=== PATIENT | female | born 1945 | race Caucasian/White ===

== ENCOUNTER 2020-12-10 14:36 | Outpatient (CLI) | payer MEDICARE, OTHER, BC, SELFPAY ==
--- NOTE | 2020-12-10 14:44 | XR_ITS ---
WS: [id number] SCREENING DEXA SCAN [employer] CLINICAL INFORMATION: POST MENOPAUSAL COMPARISON: July 10, 2013 FINDINGS: The L1-L4 bone mineral density measures 1.276 g/cm2. This corresponds to a T score score of 0.8 and Z score of 2.0. Left femoral neck bone mineral density measures 0.887 g/cm2. This corresponds to a T score of -1.0 an d Z score of 0.3. Right femoral neck bone mineral density measures 0.922 g/cm2. This corresponds to a T score -0.7of an d Z score of 0.6. Mean femoral neck bone mineral density measures 0.904 g/cm2. This corresponds to a T score of -0.8 an d Z score of 0.5. XR/XR DEXA axial skeleton* [id number] IMPRESSION: Osteopenia left femoral neck. Normal bone mineralization right femoral neck and lumbar spine. Patient's FRAX calculated 10 year probability for major osteoporotic fracture i s 18.3 % and osteoporotic hip fracture is 5.4%.
== END 2020-12-10 14:37 | disposition home or self-care (01) ==
LOC: RADWPI 14:42
PROVIDERS: Visit Provider Family Medicine
DX: Z78.0 Asymptomatic menopausal state (principal); M85.862 Other specified disorders of bone density and structure, left lower leg
CPT/HCPCS: 77080

== ENCOUNTER 2021-10-13 14:07 | Outpatient (CLI) | payer MEDICARE, BC, SELFPAY ==
--- NOTE | 2021-10-13 14:19 | XR_ITS ---
WS: [id number] XR elbow LT min 3V* [id number] REASON FOR EXAM: ELBOW PAIN LEFT FINDINGS: Joint spaces of the elbow are intact and well preserved. There is a deformity of the radial head. This appears to represent an impacted fracture of unknown ch ronicity. No other bone abnormality. No soft tissue abnormality. XR/XR elbow LT min 3V* [id number] IMPRESSION: Impaction fracture of the radial head, unknown chronicity. Most likely subacute versus chronic.
== END 2021-10-13 14:08 | disposition home or self-care (01) ==
PROVIDERS: PCP Family Medicine; Visit Provider Family Medicine
DX: S52.122A Displaced fracture of head of left radius, initial encounter for closed fracture (principal); M25.522 Pain in left elbow; X58.XXXA Exposure to other specified factors, initial encounter
CPT/HCPCS: 73080

== ENCOUNTER → 2021-10-21 08:13 | Outpatient (BNVA) | payer MEDICARE, BC, SELFPAY | PROVIDERS: PCP Family Medicine; Referring Provider Family Medicine; Visit Provider Physician Assistant | DX: S59.902A Unspecified injury of left elbow, initial encounter (principal); X58.XXXA Exposure to other specified factors, initial encounter | CPT/HCPCS: 73080 ==

== ENCOUNTER → 2021-11-04 09:06 | Outpatient (BNVA) | payer MEDICARE, BC, SELFPAY | PROVIDERS: PCP Family Medicine; Visit Provider Physician Assistant | DX: S52.125D Nondisplaced fracture of head of left radius, subsequent encounter for closed fracture with routine healing (principal); X58.XXXD Exposure to other specified factors, subsequent encounter; M19.011 Primary osteoarthritis, right shoulder; M75.41 Impingement syndrome of right shoulder | CPT/HCPCS: 73030; 73080; 99213; 99999 ==

== ENCOUNTER 2022-03-08 12:41 | Outpatient (CLI) | payer MEDICARE, BC, SELFPAY ==
--- NOTE | 2022-03-08 13:04 | XRR_ITS ---
PROCEDURE INFORMATION: Exam: XR Left Knee Exam date and time: 03/08/2022 1:07 PM Age: 76 years old Clinical indication: Swelling or effusion of joint; Knee; Left; Patient HX: Swelling around patella, pain around 7 dull ache x 1 month; Additional info: Knee pain TECHNIQUE: Imaging protocol: Radiologic exam of the Left knee. Views: 1 or 2 views. COMPARISON: No relevant prior studies available. FINDINGS: Bones/joints: A joint effusion is present with fluid in the suprapatellar bursa. No fracture or other acute abnormality. No significant degenerative changes. Soft tissues: Normal. XR/XR knee LT 1-2V [id number] IMPRESSION: Small joint effusion. No acute bony abnormality.
== END 2022-03-08 12:42 | disposition home or self-care (01) ==
LOC: RAD 12:45
PROVIDERS: PCP Family Medicine; Visit Provider Family Medicine
DX: M25.562 Pain in left knee (principal); E03.9 Hypothyroidism, unspecified; R06.00 Dyspnea, unspecified
CPT/HCPCS: 73560; 80053; 83880; 84443; 85025; 85379

== ENCOUNTER 2022-03-16 09:30 | Outpatient (CLI) | payer MEDICARE, BC, SELFPAY ==
[2022-03-16] MEDS: iohexol 350 mg/mL 100 mL Btl IV (09:51)
--- NOTE | 2022-03-16 10:00 | CT_ITS ---
WS: [id number] CTA OF THE CHEST WITH PULMONARY EMBOLISM PROTOCOL TECHNIQUE: High-resolution contrast enhanced CTA of the chest with coronal and sagittal reformatted i mages with pulmonary embolism protocol. MIP images are also reviewed. CLINICAL INFORMATION: dyspnea and elevated d-dimer COMPARISON: None. DLP: 493.[address] scans at [facility] use at least one of these dose optimization techniques: automated e xposure control; mA and/or kV adjustment per patient size (includes targeted exams where dose is matc hed to clinical indication); or iterative reconstruction. FINDINGS: Cardiomegaly. Proximal main pulmonary arteries are normal. Normal segmental and subsegmental pulmonar y arteries. No evidence of pulmonary embolus. Moderate chronic edematous changes. No acute pulmonary infiltrates. Slight bibasilar atelectasis. Nor mal caliber thoracic aorta. No mediastinal or hilar lymphadenopathy. No axillary lymphadenopathy. Sli ghtly spiculated Fibrotic opacity RIGHT upper lobe at the lung apex. Subpleural opacity measures 1.2 x 1.0 CM. Adrenal glands are normal. Moderate esophageal hiatal hernia. CT/CT angio chest PE protcl [id number] IMPRESSION: 1. No evidence of pulmonary embolus. 2. Chronic emphysematous changes. No acute pulmonary infiltrates. Slight bibas ilar atelectasis. 3. Slightly spiculated Fibrotic opacity RIGHT upper lobe at the lung apex rubin uring 1.2 x 1.0 cm. Recommend 3-6 month follow-up chest CT to confirm stability .
== END 2022-03-16 09:31 | disposition home or self-care (01) ==
LOC: RAD 09:30
PROVIDERS: PCP Family Medicine; Visit Provider Family Medicine
DX: R06.00 Dyspnea, unspecified (principal); R79.89 Other specified abnormal findings of blood chemistry; J98.11 Atelectasis
CPT/HCPCS: 71275

== ENCOUNTER → 2022-04-01 15:48 | Outpatient (BNVA) | payer MEDICARE, BC, SELFPAY | PROVIDERS: PCP Family Medicine; Visit Provider Registered Nurse Neonatal Intensive Care | DX: Z20.822 Contact with and (suspected) exposure to COVID-19 (principal) | CPT/HCPCS: 87426 ==

== ENCOUNTER 2022-04-13 15:17 | Outpatient (CLI) | payer MEDICARE, BC, SELFPAY ==
--- NOTE | 2022-04-13 16:00 | CT_ITS ---
WS: [id number] CT CHEST TECHNIQUE: Noncontrast CT of the chest with coronal and sagittal reformatted images. CLINICAL INFORMATION: Follow-up on lung nodule COMPARISON: CT March 16, 2022 DLP: 645.[address] scans at [facility] use at least one of these dose optimization techniques: automated e xposure control; mA and/or kV adjustment per patient size (includes targeted exams where dose is matc hed to clinical indication); or iterative reconstruction. FINDINGS: Again seen is a slightly spiculated fibrotic opacity in RIGHT lung apex today measuring approximately 1.3 x 1.0 cm not significantly changed compared to previous. Recommend continued surveillance with 1 2 month follow-up. Small associated punctate focus of calcification. A few scattered calcified granulomas. Slight bibasilar atelectasis. Moderate thoracic kyphosis. Hyper trophic changes thoracic spine. Normal caliber thoracic aorta. Calcified mediastinal and AP window ly mph nodes. Calcified subcarinal lymph nodes. No axillary lymphadenopathy. Cardiomegaly. Adrenal glands are normal. Moderate esophageal hiatal hernia. CT/CT chest wo con [id number] IMPRESSION: 1. Stable fibrotic slightly spiculated opacity in RIGHT lung apex measuring 1. 3 x 1.0 cm not significantly changed. Recommend 12 month follow-up. 2. No other significant changes compared to previous. 3. Moderate esophageal hiatal hernia. 4. Cardiomegaly. 5. No mediastinal or hilar lymphadenopathy. 6. No other significant findings.
== END 2022-04-13 15:18 | disposition home or self-care (01) ==
LOC: RAD 15:18
PROVIDERS: PCP Family Medicine; Visit Provider Family Medicine
DX: R91.1 Solitary pulmonary nodule (principal); K44.9 Diaphragmatic hernia without obstruction or gangrene; I51.7 Cardiomegaly
CPT/HCPCS: 71250

== ENCOUNTER 2022-04-18 09:55 | Outpatient (CLI) | payer MEDICARE, BC, SELFPAY ==
--- NOTE | 2022-04-18 10:15 | USCV_ITS ---
Latoya Bell Age: 76 Gender: F : 1945 Exam Date: 04/18/2022 10:09 Ordering Phys: Tomas Walsh MD Technologist: Cici Galvin [place] [facility] [place]ication: CANTU BP: 140 / 80 HR: 76 Rhythm: Atrial fibrillation Technical Quality: Good MEASUREMENTS (Male / Female) Normal Values 2D ECHO LV Diastolic Diameter PLAX 4.4 cm 4.2 - 5.9 / 3.9 - 5.3 cm LV Systolic Diameter PLAX 2.5 cm IVS Diastolic Thickness 1.1 cm 0.6 - 1.0 / 0.6 - 0.9 cm IVS Systolic Thickness 1.2 cm LVPW Diastolic Thickness 0.9 cm 0.6 - 1.0 / 0.6 - 0.9 cm LVPW Systolic Thickness 1.4 cm LVOT Diameter 2.1 cm LV Ejection Fraction 2D Teich 76.0 % LV Ejection Fraction MOD 2C 58.3 % LV Ejection Fraction 2C AL 62.9 % LA Diameter 4.2 cm LA Width 4.7 cm LA Height 6.2 cm RA Width 3.6 cm RA Height 5.6 cm Aorta at Sinotubular Diameter 2.5 cm IVC Diameter 1.5 cm M-MODE MV E Point Septal Separation 0.5 cm DOPPLER AV Peak Velocity 149.0 cm/s LVOT Peak Velocity 91.0 cm/s AV Area Cont Eq vti 3.1 cm squared AV Area Cont Eq pk 2.2 cm squared MV Peak Velocity 159.0 cm/s MV Area PHT 3.9 cm squared Mitral E to A Ratio 4.6 MV E' Velocity 75.5 cm/s Mitral E to MV E' Ratio 13.1 Mitral E to LV E' Lateral Ratio 10.9 Mitral E to LV E' Septal Ratio 16.5 TR Peak Velocity 256.0 cm/s TR Peak Gradient 26.2 mmHg Right Atrial Pressure 3.0 mmHg Pulmonary Artery Systolic Pressu 29.2 mmHg PV Peak Velocity 82.0 cm/s RV Acceleration Time 0.1 s RV Ejection Time 0.3 s RV AcT/ET 0.3 FINDINGS Left Ventricle Normal left ventricular size and systolic function, EF 61 %. No regional wall motion abnormalities. Right Ventricle The right ventricle is normal in size and function. Right Atrium Mildly increased right atrial size. Left Atrium Mildly increased left atrial size. Mitral Valve Moderate mitral annular calcification. Mild mitral valve regurgitation. Aortic Valve Structurally normal aortic valve without significant sclerosis or stenosis. There is no aortic regurgitation. Tricuspid Valve Mild to moderate tricuspid valve regurgitation. Estimated pulmonary artery peak systolic pressure 29 mmHg Pulmonic Valve Pulmonic valve not well visualized. Pericardium Normal pericardium without effusion. Aorta Normal ascending aorta dimension. IVC The inferior vena cava appears normal. CONCLUSIONS Normal left ventricular size and systolic function, EF 61 %. No regional wall motion abnormalities. Moderate mitral annular calcification. Mild mitral valve regurgitation. Mild biatrial enlargement, Mild to moderate tricuspid valve regurgitation. Estimated pulmonary artery peak systolic pressure 29 mmHg. There is no pericardial effusion. There are no intracardiac masses. No previous study is available for comparison. Dr Darshan Reed MD FACC (Electronically Signed) Final Date: 18 April 2022 23:38 S
== END 2022-04-18 09:56 | disposition home or self-care (01) ==
LOC: RAD 09:56
PROVIDERS: PCP Family Medicine; Visit Provider Family Medicine
DX: R07.9 Chest pain, unspecified (principal); R06.09 Other forms of dyspnea; I48.91 Unspecified atrial fibrillation; I08.1 Rheumatic disorders of both mitral and tricuspid valves
CPT/HCPCS: 93306

== ENCOUNTER 2022-06-02 10:30 | Outpatient (CLI) | payer MEDICARE, BC, SELFPAY ==
[2022-06-02 10:49] VITALS: BMI 30.1
--- NOTE | 2022-06-02 10:50 | ECG_ITS ---
[facility] Test Date: 2022-06-02 Pat Name: Latoya Bell Department: Room: Gender: Female [employer] Sql Developer: Charlette Ahumada : 1945 Requested By: Tomas Mayberry Order Number: [id number] Carlisle MD: Spring Roberts M.D. Interpretive Statements NAME OF STUDY: EXERCISE SESTAMIBI STRESS TEST INDICATION: Chest Pain Baseline blood pressure of 191/111 mm Hg, heart rate of 97 beats per minute and oxygen saturation of 94%. EKG showed atrial fibrillation, possible old septal infarct and non specific ST changes. ??? The patient exercised for 2 minutes 59 seconds on a standard Jose protocol. Patient attained a maximum heart rate of 167 beats per minute( 115 % of the maximum predicted heart rate) with a blood pressure at the peak exercise of 211/102 mm Hg and oxygen saturation of 89%. The EKG at the peak exercise revealed atrial fibrillation with RVR. No significant ST-T wave changes. Patient did not have any chest pain or any significant arrhythmis with the exercise. The study was terminated due to exertional shortness of breath. During the recovery phase, there were no new changes. ??? Blood pressure at the end of the recovery phase was 182/114 mm Hg with a heart rate of 85 beats per minute and oxygen saturation of 95%. ??? CONCLUSION: 1. Normal EKG response to treadmill exercise. 2. No exercise-induced chest pain or cardiac arrhythmia. 3. Fair exercise tolerance, attained a maximum of 4.6 METs. 4. Baseline hypertension with hypertensive response to exercise. 5. Perfusion scan will be documented separately. Electronically Signed On 06-13-2022 19:39:32 WEBSITE OPTIMIZATION STRATEGIST by Spring Roberts M.D. [id number]
--- NOTE | 2022-06-02 10:50 | NMCV_ITS ---
NM berenice perf SPECT r/s* [id number] Latoya Bell Age: 76 Gender: F : 1945 Exam Date: 06/02/2022 12:05 Ordering Phys: Tomas Walsh MD Technologist: KAREEM Christiansen Exam Location: [facility] Indications: CHEST PAIN SHORTNESS OF BREATH STRESS TEST Please see separate stress test report in [facility] for full findings IMAGE PROTOCOL Rest/Stress 1 Lexiscan Day Radiopharmaceutical Dose (mCi) Administration Site Administered by Rest: Tc-99m 10.7 IV KAREEM Aiken Sestamibi Stress:Tc-99m 32.8 IV KAREEM Aiken Sestamibi Rest: 02-Jun-2022 60 Discovery 630 Stress: 02-Jun-2022 30 Discovery 630 0.4mg Lexiscan. Images obtained in supine and prone position. SPECT RESULTS Technical Quality: Excellent Raw Data Analysis: Normal Image Corrections: No attenuation or motion correction applied Summed Stress Score: 0 Summed Rest Score: 1 Summed Difference Score: 0 PERFUSION FINDINGS Small sized perfusion abnormality of mild severity of apical lateral wall with improved tracer uptake in stress images. This is suggestive of attenuation artifact. FUNCTIONAL RESULTS (calculated via Gated SPECT) Stress Image LV EF (%): 74 Stress EDV (mL):62 TID: 0.77 Stress ESV (mL):16 FUNCTIONAL FINDINGS: The left ventricle is normal in size. Transient Ischemia Dilatation of 0.77. The left ventricular ejection fraction is normal with a value of 74%. There is normal left ventricular wall thickening. Normal end diastolic and end systolic volumes. IMPRESSIONS 1. Myocardial perfusion imaging is normal. 2. Overall left ventricular systolic function is normal without regional wall motion abnormalities, LVEF=74%. 3. EKG portion of the study will be reported separately. Spring Roberts MD (Electronically Signed) Final Date: 05 June 2022 18:23 S
[2022-06-02 13:28] VITALS: BP 185/114; PULSE 86
== END 2022-06-02 10:31 | disposition home or self-care (01) ==
LOC: CDL 10:34
PROVIDERS: PCP Family Medicine; Visit Provider Family Medicine
DX: R07.9 Chest pain, unspecified (principal)
CPT/HCPCS: 78452; 93017; A9500

== ENCOUNTER → 2022-12-15 11:59 | Outpatient (BNVA) | payer MEDICARE, SELFPAY | PROVIDERS: PCP Family Medicine; Visit Provider Family Medicine | DX: I48.91 Unspecified atrial fibrillation (principal); I63.9 Cerebral infarction, unspecified; E03.9 Hypothyroidism, unspecified; F32.A Depression, unspecified; I48.0 Paroxysmal atrial fibrillation | CPT/HCPCS: 80053; 84443; 85025 ==

== ENCOUNTER → 2023-03-22 10:00 | Outpatient (BNVA) | payer MEDICARE, SELFPAY | PROVIDERS: PCP Family Medicine; Visit Provider Family Medicine | DX: R74.8 Abnormal levels of other serum enzymes (principal); I63.9 Cerebral infarction, unspecified | CPT/HCPCS: 80053; 85025 ==

== ENCOUNTER → 2023-05-02 13:04 | Outpatient (BNVA) | payer MEDICARE, SELFPAY | PROVIDERS: PCP Family Medicine; Referring Provider Dermatology; Visit Provider Physician Assistant | DX: M17.12 Unilateral primary osteoarthritis, left knee | CPT/HCPCS: 73560; 73565; 97760; 99204; L1812 ==

== ENCOUNTER 2023-05-02 14:41 | Outpatient (CLI) | payer MEDICARE, SELFPAY | END 2023-05-02 14:42 | disposition home or self-care (01) | LOC: SPT 14:42 | PROVIDERS: PCP Family Medicine; Visit Provider Student in an Organized Health Care Education/Training Program | DX: Z46.89 Encounter for fitting and adjustment of other specified devices (principal); M17.12 Unilateral primary osteoarthritis, left knee | CPT/HCPCS: 97760; 99204; L1812 ==

== ENCOUNTER 2023-05-19 12:29 | Outpatient (CLI) | payer MEDICARE, SELFPAY ==
--- NOTE | 2023-05-19 12:33 | XR_ITS ---
WS: [id number] Right rib detail, 4 views, 05/19/2023 Clinical Data: fall with trauma to rib Comparison: None. Findings: There is irregularity of the costal vertebral junctions of the right third and fourth ribs. These reg ions look like old fractures rather than new fractures. The lower ribs show no fractures. No right pn eumothorax is seen. There is no subcutaneous emphysema. Impression: 1. Irregularity of the costovertebral junctions of the right third and fourth ribs which may represen t an old injury. 2. Negative for rib fractures of the lower right ribs.
--- NOTE | 2023-05-19 12:33 | XR_ITS ---
WS: [id number] Right shoulder, 3 views, 05/19/2023 Clinical Data: fall with trauma to right shoulder Comparison: Right shoulder, 11/04/2021 Findings: No fractures or dislocations are seen. The AC joint shows mild osteoarthritis. There is minimal osteo arthritic change of the glenohumeral joint.. The adjacent right clavicle, right scapula and ribs are normal. The soft tissues are unremarkable. Impression: Minimal osteoarthritis of the right glenohumeral joint and right AC joint.
== END 2023-05-19 12:30 | disposition home or self-care (01) ==
LOC: RAD 12:30
PROVIDERS: PCP Family Medicine; Visit Provider Nurse Practitioner
DX: S49.91XA Unspecified injury of right shoulder and upper arm, initial encounter (principal); W19.XXXA Unspecified fall, initial encounter; R07.81 Pleurodynia; M19.011 Primary osteoarthritis, right shoulder
CPT/HCPCS: 71100; 73030

== ENCOUNTER → 2023-06-27 09:55 | Outpatient (BNVA) | payer MEDICARE, SELFPAY | PROVIDERS: PCP Family Medicine; Visit Provider Family Medicine | DX: E03.9 Hypothyroidism, unspecified (principal); I48.91 Unspecified atrial fibrillation; I63.9 Cerebral infarction, unspecified; F32.A Depression, unspecified; Z00.00 Encounter for general adult medical examination without abnormal findings | CPT/HCPCS: 80053; 80061; 84443; 85025 ==

== ENCOUNTER → 2023-07-06 09:11 | Outpatient (BNVA) | payer MEDICARE, SELFPAY | PROVIDERS: PCP Family Medicine; Visit Provider Physician Assistant | DX: M17.12 Unilateral primary osteoarthritis, left knee (principal); M23.305 Other meniscus derangements, unspecified medial meniscus, unspecified knee | CPT/HCPCS: 99213 ==

== ENCOUNTER 2023-08-09 13:24 | Outpatient (CLI) | payer MEDICARE, SELFPAY ==
--- NOTE | 2023-08-09 13:45 | MR_ITS ---
WS: [id number] MRI LEFT KNEE HISTORY: left knee pain COMPARISON: None available. Anterior cruciate ligament: Complete tear ACL. Anterior translation of the tibial plateau with respec t to the femoral condyle. Posterior cruciate ligament: Buckling of the PCL due to the ACL tear. Medial collateral ligament: Intact but displaced from the joint line. Posterior lateral corner structures: Intact. Medial menisci: Blunting free edge of the posterior horn with fraying along the surfaces of the menis cus. Lateral meniscus: Small caliber menisci. Abnormal shape. Extensor mechanism: Distal quadriceps tendon and patellar tendons are intact. Fluid and soft tissue: There is a large suprapatellar joint effusion with a few small loose bodies pr esent. There is also a large Thompson's cyst extending over a length of at least 8.5 cm. Additional flui d-filled structure along the medial compartment of the knee may be a ganglion. Osseous and articular structures: Patellofemoral compartment: Slight lateral subluxation. Otherwise negative. Medial compartment: Moderate near the medial compartment with moderate chondromalacia. Marrow edema i n the medial femoral condyle. Lateral compartment: Marked narrowing of the lateral compartment with marrow edema greatest in the ti bial plateau. Complete loss of cartilage. IMPRESSION: 1. Complete tear ACL. 2. Moderate to severe narrowing of the medial and lateral compartments with loss of cartilage. 3. Marrow edema in the medial femoral condyle and the lateral tibial plateau. 4. Abnormal size and shape of the lateral menisci consistent with tears. 5. Blunting free edge posterior horn medial meniscus consistent with a tear. 6. Large joint effusion and large Thompson's cyst. Additional cystic collection along the medial knee c ompartment may be a ganglion.
== END 2023-08-09 13:25 | disposition home or self-care (01) ==
LOC: RAD 13:25
PROVIDERS: PCP Family Medicine; Visit Provider Physician Assistant
DX: M17.12 Unilateral primary osteoarthritis, left knee (principal); S83.422A Sprain of lateral collateral ligament of left knee, initial encounter; M71.22 Synovial cyst of popliteal space [Baker], left knee; X58.XXXA Exposure to other specified factors, initial encounter
CPT/HCPCS: 73721

== ENCOUNTER → 2023-08-17 13:45 | Outpatient (BNVA) | payer MEDICARE, SELFPAY | PROVIDERS: PCP Family Medicine; Referring Provider Family Medicine; Visit Provider Physician Assistant | DX: S83.207A Unspecified tear of unspecified meniscus, current injury, left knee, initial encounter (principal); S83.512A Sprain of anterior cruciate ligament of left knee, initial encounter; M17.12 Unilateral primary osteoarthritis, left knee; X58.XXXA Exposure to other specified factors, initial encounter | CPT/HCPCS: 99213 ==

== ENCOUNTER → 2023-12-26 09:31 | Outpatient (BNVA) | payer MEDICARE, SELFPAY | PROVIDERS: PCP Family Medicine; Visit Provider Family Medicine | DX: R31.9 Hematuria, unspecified (principal); F32.A Depression, unspecified; E03.9 Hypothyroidism, unspecified; I48.0 Paroxysmal atrial fibrillation; I63.419 Cerebral infarction due to embolism of unspecified middle cerebral artery; E11.9 Type 2 diabetes mellitus without complications | CPT/HCPCS: 80053; 80061; 81000; 84443 ==

== ENCOUNTER → 2024-07-11 08:37 | Outpatient (BNVA) | payer MEDICARE, SELFPAY | PROVIDERS: PCP Family Medicine; Visit Provider Family Medicine | DX: I48.0 Paroxysmal atrial fibrillation (principal); E11.9 Type 2 diabetes mellitus without complications; E03.9 Hypothyroidism, unspecified; I63.419 Cerebral infarction due to embolism of unspecified middle cerebral artery; R91.1 Solitary pulmonary nodule | CPT/HCPCS: 80053; 80061; 84443; 85025 ==

== ENCOUNTER 2024-07-26 08:46 | Outpatient (CLI) | payer MEDICARE, SELFPAY ==
--- NOTE | 2024-07-26 09:00 | CT_ITS ---
WS: [id number] CT chest wo con [id number] HISTORY: f/u on lung nodule TECHNIQUE: Axial imaging performed through the thorax. Coronal and sagittal reformats are submitted. All CT scans at [facility] use at least one of these dose optimization techniques: automated exposure control; mA and/or kV adjustment per patient size (includes targeted exams where dose is mat ched to clinical indication); or iterative reconstruction. CONTRAST: None DLP: 417.40 mGy.cm COMPARISON: 04/13/2022 Lungs and central airway: Reidentified is the linear area of fibrosis with central calcification at t he RIGHT apex measuring 1.6 x 0.5 cm. This corresponds to the previously described area of fibrosis. No progression. There are a few benign calcified granulomata. No additional mass, nodule or pneumonia . Pleura: Normal. No pleural effusion. Heart and pericardium: Moderate cardiomegaly. Mediastinum and stefany: Small mediastinal and hilar lymph nodes. Some of these lymph nodes are calcifie d. Very similar in appearance to the prior exam. Small axillary lymph nodes. Vessels: Mild atherosclerosis aorta. Normal size pulmonary artery. Chest wall and lower neck: No soft tissue masses. Upper abdomen: Large hiatal hernia. No adrenal mass. Suprarenal aortic calcifications. Osseous structures: Mild increase in thoracic kyphosis. CT/CT chest wo con [id number] IMPRESSION: 1. Long-term stability linear scar at the RIGHT apex. No additional follow-up necessary. No new mass or pulmonary nodule. 2. Large hiatal hernia. 3. No mediastinal or hilar adenopathy. 4. Moderate cardiomegaly.
== END 2024-07-26 08:47 | disposition home or self-care (01) ==
LOC: RAD 08:47
PROVIDERS: PCP Family Medicine; Visit Provider Family Medicine
DX: R91.1 Solitary pulmonary nodule (principal); J84.10 Pulmonary fibrosis, unspecified; K44.9 Diaphragmatic hernia without obstruction or gangrene; I51.7 Cardiomegaly; I70.0 Atherosclerosis of aorta
CPT/HCPCS: 71250

== ENCOUNTER → 2025-04-30 08:07 | Outpatient (BNVA) | payer MEDICARE, SELFPAY | PROVIDERS: PCP Family Medicine; Visit Provider Student in an Organized Health Care Education/Training Program | DX: M17.12 Unilateral primary osteoarthritis, left knee (principal); Z01.89 Encounter for other specified special examinations | CPT/HCPCS: 73560; 73565; 99214 ==

== ENCOUNTER 2025-05-16 14:12 | Outpatient (CLI) | payer MEDICARE, SELFPAY ==
--- NOTE | 2025-05-16 14:30 | CT_ITS ---
WS: [id number] CT LEFT knee, noncontrast HISTORY: M17.12 - Unilateral primary osteoarthritis, left knee TECHNIQUE: Protocol for [facility] total knee replacement has been obtained. This includes axial imaging through the LEFT hip, LEFT knee and LEFT ankle. DLP: 881.23 mGy.cm COMPARISON: 04/30/2025 LEFT hip: No significant joint space narrowing. No destructive bone lesions. Mild sigmoid diverticulosis without acute diverticulitis. LEFT knee: Mild to moderate medial and lateral joint space narrowing with large suprapatellar joint effusion. Joint effusion does appear to have progressed since the radiograph of 04/30/2025. Large multiloculated Thompson's cyst. LEFT ankle: Negative. CT/CT knee [facility]3] [id number] IMPRESSION: CT imaging provided for [facility] robotic total knee replacement.
== END 2025-05-16 14:13 | disposition home or self-care (01) ==
LOC: RAD 14:14
PROVIDERS: PCP Family Medicine; Visit Provider Student in an Organized Health Care Education/Training Program
DX: M17.12 Unilateral primary osteoarthritis, left knee (principal); K57.30 Diverticulosis of large intestine without perforation or abscess without bleeding; M25.462 Effusion, left knee; M71.22 Synovial cyst of popliteal space [Baker], left knee
CPT/HCPCS: 73700

== ENCOUNTER → 2025-05-27 13:25 | Outpatient (BNVA) | payer MEDICARE, SELFPAY | PROVIDERS: PCP Family Medicine; Visit Provider Physician Assistant | DX: M17.12 Unilateral primary osteoarthritis, left knee (principal) | CPT/HCPCS: 99213 ==

== ENCOUNTER 2025-05-27 16:28 | Outpatient (CLI) | payer MEDICARE, SELFPAY ==
[2025-05-27 16:53] LABS: Hematocrit 41.6 % (36-47); Hemoglobin 13.80 g/dL (11.27-16.99); Mean Corpuscular HGB Conc 33.2 g/dL (30-55); Mean Corpuscular Hemoglobin 31.1 pg (27-33); Mean Corpuscular Volume 93.7 fl (85-98); Nucleated Red Blood Cells % 0 %; Platelet Count 207 10^3/cmm (157-399); Red Blood Count 4.44 10^6/uL (3.85-5.65); White Blood Count 5.30 10^3/uL (3.29-11.43)
[2025-05-27 17:33] LABS: Glucose Urine UA Negative (Normal); Nitrate Urine Negative (Negative); Specific Gravity, Urine 1.015 (1.005-1.030)
[2025-05-27 17:33] LABS: Alanine Aminotransferase 18 U/L (0-33); Albumin Level 4.0 g/dL (3.5-5.2); Alkaline Phosphatase 79 U/L (35-105); Anion Gap 12.6 (5-19); Aspartate Amino Transferase 24 U/L (0-32); Blood Urea Nitrogen 19 mg/dL (8-23); Calcium 9.4 mg/dL (8.5-10.5); Carbon Dioxide 30 mmol/L (22-29); Chloride 93 mmol/L (98-107); Globulin 3.9 g/dL (1.3-4.6); Glucose 88 mg/dL (65-115); Osmolality Calculated 276 mOsm/kg (285-295); Potassium 3.6 mmol/L (3.5-5.1); Sodium 132 mmol/L (136-145); Total Protein 7.9 g/dL (6.6-8.7)
[2025-05-27 17:36] LABS: Add Urine Microscopic? YES
== END 2025-05-27 16:29 | disposition home or self-care (01) ==
LOC: LAB 16:29
PROVIDERS: PCP Family Medicine; Visit Provider Student in an Organized Health Care Education/Training Program
DX: Z01.818 Encounter for other preprocedural examination (principal)
CPT/HCPCS: 36415; 80053; 81001; 85025; 87086

== ENCOUNTER → 2025-06-12 12:48 | Outpatient (BNVA) | payer MEDICARE, SELFPAY | PROVIDERS: PCP Family Medicine; Visit Provider Family Medicine | DX: R30.0 Dysuria (principal) | CPT/HCPCS: 81000 ==

== ENCOUNTER 2025-06-16 12:06 | Observation (INO) | payer MEDICARE, SELFPAY ==
[2025-06-16] VITALS (15 sets, daily range): BP systolic 115–178; BP diastolic 65–83; PULSE 62–94; RESP 16–20; TEMP 36.1–36.7; O2SAT 93–100; BMI 30.1
--- NOTE | 2025-06-16 09:01 | ANES.PREANE2 ---
Pre-Anesthetic Assessment Height/Weight: Height 5 ft 3 in Weight 170 lb Preop Diagnosis: Knee osteoarthritis Operation Date: 06/16/25 09:55 Proposed Procedures p [employer] Total Knee Arthroplasty(Left) - Marino Green, DO Was Beta Natalya taken within 24 hours: Yes Was Clonidine taken within 24 hours: N/A Last intake: Intake Last Liquid Date 06/15/25 Last Liquid Time 22:00 Last Solid Date 06/16/25 Last Solid Time 18:00 Social No alcohol and No tobacco Exam alert, oriented x 3, clear to auscultation bilaterally and regular rate & rhythm Airway Submandibular: within normal limits Cervical ROM: within normal limits Mallampati: Class III Dentition: full Anesthetic Plan ASA status: 3 Anesthesia: MAC and Regional (specify below) Other: No prior issues with anesthesia NPO since yesterday evening History of hypertension on hydrochlorothiazide and metoprolol. BB taken today Prior CVA 3 years ago, no deficits Hypothyroidism on Synthroid A-fib on chronic Eliquis. Last taken 06/12/2025 Labs reviewed from 05/27/2025 and acceptable for procedure today. NA 132 at that time Type and screen performed Plan for spinal anesthesia with peripheral nerve block Medications/Allergies Home Medications ?Medication ?Instructions ?Recorded ?Confirmed ?Last Taken ?Type ECONOMY HINGED KNEE BRACE #1 ea 05/02/23 06/12/25 Unknown Rx betamethasone dipropionate 0.05 % 1 applic topical BID PRN skin 06/27/23 06/12/25 Unknown Rx topical ointment irritation #15 grams metoprolol succinate 100 mg 50 mg PO DAILY 12/26/23 06/16/25 06/16/25 06:55 History tablet,extended release 24 hr atorvastatin 40 mg tablet 40 mg PO DAILY #30 tabs 07/11/24 06/16/25 06/16/25 Rx apixaban 5 mg tablet (Eliquis) 5 mg PO BID #60 tabs 10/28/24 06/16/25 06/12/25 08:30 Rx citalopram 40 mg tablet 40 mg PO DAILY #30 tabs 10/28/24 06/16/25 06/15/25 Rx levothyroxine 75 mcg tablet 75 mcg PO DAILY #90 tabs 05/30/25 06/16/25 06/16/25 06:55 Rx (Synthroid) hydrochlorothiazide 25 mg tablet 25 mg PO DAILY 06/12/25 06/16/25 06/15/25 History Allergies Allergy/AdvReac Type Severity Reaction Status Date / Time codeine Allergy Severe Unknown Verified 06/12/25 15:14 Sulfa (Sulfonamide Allergy hives Verified 06/12/25 15:14 Antibiotics) [facility] Anesthesia Medical History Atrial fibrillation CVA (cerebral vascular accident) Occurred in April 2023. 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 Lung nodule Hypothyroid Social History Smoking and tobacco/nicotine status: never used tobacco/nicotine Alcohol intake: never Data Anesthesia 06/16/25 08:57 Cardiac Studies: Echocardiogram 04/18/22 Sestamibi Stress Test (Cardiology) 06/02/22
[2025-06-16] MEDS: acetaminophen 1,000 MG/100 ML PIGGYBACK 400 MG IV ×3 (09:06→20:48)
[2025-06-16 09:11] LABS: Hematocrit 42.4 % (36-47); Hemoglobin 14.00 g/dL (11.27-16.99); Mean Corpuscular HGB Conc 33.0 g/dL (30-55); Mean Corpuscular Hemoglobin 30.4 pg (27-33); Mean Corpuscular Volume 92.0 fl (85-98); Nucleated Red Blood Cells % 0 %; Platelet Count 220 10^3/cmm (157-399); Red Blood Count 4.61 10^6/uL (3.85-5.65); White Blood Count 5.50 10^3/uL (3.29-11.43)
--- NOTE | 2025-06-16 09:50 | W.PM.OPSUD ---
Surgery/Procedure H&P Update DATE OF PROCEDURE: June 16, 2025 DATE H&P PERFORMED: 05/27/25 H&P UPDATE INFORMATION: I have reviewed H&P completed within last 30 days, I have examined patient prior to procedure and No changes to prior documentation PREOP DIAGNOSIS: Left knee osteoarthritis PRIMARY INDICATION FOR PROCEDURE: Left knee DJD PLANNED PROCEDURE: Operation Date: 06/16/25 09:55 Proposed Procedures p Gentry Robot Total Knee Arthroplasty(Left) - Marino Green DO
[2025-06-16] MEDS: ceFAZolin 2,000 MG in sodium chloride 0.9% (plus) 50 ML 100 MG IV ×2 (10:10→17:20)
[2025-06-16 10:21] LABS: Anion Gap 8.1 (5-19); Blood Urea Nitrogen 9 mg/dL (8-23); Calcium 9.0 mg/dL (8.5-10.5); Carbon Dioxide 33 mmol/L (22-29); Chloride 98 mmol/L (98-107); Creatinine Clr Calc Pharmacy 56.9859; Glucose 86 mg/dL (65-115); Osmolality Calculated 278 mOsm/kg (285-295); Potassium 4.1 mmol/L (3.5-5.1); Sodium 135 mmol/L (136-145)
--- NOTE | 2025-06-16 10:22 | XRR_ITS ---
PROCEDURE INFORMATION: Exam: XR Left Knee Exam date and time: 06/16/2025 12:17 PM Age: 79 years old Clinical indication: Device placement; Joint replacement hardware; Prior surgery; Surgery date: Post-operative (0-2 days); Surgery type: Post L tka; Additional info: Post L tka, do in pacu TECHNIQUE: Imaging protocol: Radiologic exam of the left knee. Views: 1 or 2 views. COMPARISON: CT knee LT [facility] [id number] 05/16/2025 2:27 PM FINDINGS: Bones/joints: Knee prosthesis in anatomic alignment. No fractures. Anterior soft tissue gas and swelling consistent with recent surgery. Soft tissues: See Bones/joints finding. XR/XR knee LT 1-2V [id number] IMPRESSION: Intact knee prosthesis.
[2025-06-16] MEDS: tranexamic acid 1,000 mg/10mL SDV 1000 MG IV (10:42)
[2025-06-16] MEDS: ROPivacaine 0.2% Premix 100 mL 200 MG INTRA-ARTI (11:10)
[2025-06-16] MEDS: tranexamic acid 1,000 mg/10mL SDV 1000 MG XX (11:10)
--- NOTE | 2025-06-16 11:59 | P.OP_ITS ---
Operative Report Date of procedure: June 16, 2025 Surgeon: Marino Green DO Side Panel Hanger: Sanjay Green PA-C: PA was necessary for assistance in this case with leg positioning retraction and protection of neurovascular structures as well as assistance in implantation wound closure and dressing application. Procedure: Preoperative diagnosis: Left knee degenerative joint disease Post-op diagnosis: Same Procedure done: Left total knee arthroplasty, cemented?robotic assisted Gentry Implants: [place] triathlon size 3 femur CR cemented?left [place] triathlon size? 3 tibia universal baseplate cemented [place] triathlon symmetric patella size 29 mm Vanessa triathlon polyethylene 13mm Surgeon: Marino Green DO Estimated blood?loss: 40 mL Tourniquet 55minutes IV fluids: 1400 mL Urine output: 600 mL Complications: None Condition: stable Disposition: floor Brief History: Patient is a 79-year-old female with with chronic?left knee degenerative joint disease.? Patient has been worked up in the outpatient setting in the orthopedic office at this point time through shared decision making given? [id number] arthritis as well as failed conservative treatment, and pt would?like to proceed with a?left total knee arthroplasty.? Through shared decision making elected to proceed with surgical intervention for?left total knee arthroplasty?Gentry robotic assisted. We talked about continued conservative treatment and surgical intervention as far as the risk benefits complications alternatives surgical and nonsurgical treatment options.? At this point time understanding patient risks with surgery patient agrees to proceed with surgical intervention.? Once again? risk with surgery include but are not?limited to make it better make it worse blood clot, heart attack, stroke, on the table, infection, injury to nerves or vessels, persistent pain, arthrofibrosis, implant failure.? Understanding these risks patient agrees to proceed with surgical intervention consent was obtained in the preoperative holding area.? All questions answered. Procedure: Patient was seen and evaluated in the preoperative holding area.? Consent was reviewed and signed with patient with plan for?left total knee arthroplasty.? All questions answered.? Correct extremity marked.? Patient seen and evaluated by the anesthesia department and once cleared for surgery was taken back to the operative suite.? Patient was placed into a supine position on the OR table.? All bony prominences were well-padded.? Patient was appropriately secured to the bed.? Patient underwent anesthesia per the anesthesia department.? Patient received spinal anesthesia and? Ga catheter was placed.? A nonsterile tourniquet was applied to the?left thigh.? At this point in time a final timeout performed.? Patient received appropriate preoperative antibiotics and TXA. Next the?left?lower extremity was then prepped and draped in standard orthopedic fashion. Esmarch tourniquet was used exsanguinate the?left?lower extremity.? Tourniquet was insufflated to 250 mmHg. A standard anterior incision was made over midline of the knee.? Sharp scalpel excision through skin and subcutaneous tissue full-thickness skin flaps were made.? Fascia was elevated off of the extensor retinaculum was stable with medial parapatellar arthrotomy was then made.? The performed standard sequential releases..? Immediately on entry into the joint patient was found to have severe eburnated bone and tricompartmental arthritic changes noted.? With significant osteophyte formation.? Next the the patella was then stuffed and the knee was then flexed.?? Jazmyn was placed superiorly around the anterior aspect of the femur this was freed of synovium and I subsequently then placed by 2 femur pins to establish my femur arrays for the Gentry robot.? These were then placed bicortically and? femur array was then appropriately secured with appropriate visualization.? Next attention was turned towards the tibial rays.? These were then drilled sequentially bicortically in parallel fashion and intraincisional.? I then placed my guide as well as my tibial array on in place.? This was appropriately secured and had excellent visualization with the Gentry robot.? Next the tibial checkpoint as well as femur checkpoint were then placed.? At this point time I then subsequently established my head center as well as my medial?lateral malleoli as well as my checkpoints.? Next utilizing standard Gentry technology I then mapped out the appropriate points and confirmation points around the femur as well as the tibia in standard fashion.? Once this was then done I then removed all osteophytes in preparation for dynamic testing.? All osteophytes were removed as well as I removed the ACL and the PCL was excised due to its significant tearing and degeneration noted.? At this point time the knee was brought into full extension and we performed our standard evaluation of our gap balancing stressing his?ligaments and extension as well as flexion appropriate adjustments were made to have appropriate gap balancing in both flexion and extension.? This plan for final cuts were made to correct patient's deformity within acceptable ligamentous tolerances. Of note she did have a 10 degree of hyperextension and had a varus deformity in extension and a valgus deformity in flexion. We are able to correct these with the cuts to patient's ligamentous tolerances. Were able to we get a preoperative plan evaluating our implants which was a size 3 femur and a size 3 tibia.? Next we brought in the Gentry robot and sequentially made our femur cuts.? All excess bony cuts were then removed.? Finally we made our tibial cut.? Once this was done a standard PCL retractor was then placed into this position I excised the medial and?lateral meniscus.? The tibial cut was then subsequently removed all excess bony debris was removed.? I then utilized a?lamina teacher specialist and remove the posterior osteophytes.? At this point time sized the tibia and confirmed this was a size 3.? I utilized our blunt probe to establish rotation of tibial implant.? Once this was done I then placed my tibia size 3 trial in appropriate position and then subsequently placed tibial pins to hold this into place and trialed up to a size 13 mm poly as well as a size 3 femur which was appropriately impacted in place knee was then subsequently brought into extension. Trials were then assessed,? this was stable with varus valgus stress in extension as well as had symmetrical translation when brought into flexion demonstrating symmetrical gaps. I had excellent balance gaps in flexion and extension with varus and valgus stresses. Patient full range of motion of achieving full extension with flexion to greater than 115 degrees. at this point I was satisfied with these implants these were then verified and opened on the back table size 3 tibia, size 3 femur,? size 13 mm polythickness.? We did confirm appropriate gap balancing and stresses as well as alignment utilizing? Gentry and were satisfied with this plan.? ?At this point time with my trials in place I then towel clip the patella everted this made appropriate measurements subsequently utilizing freehand technique performed by patellar resurfacing this was confirmed to be appropriate resection and subsequently sized to be a 29 mm symmetric.? My drill peg guides were then clamped and appropriate position and appropriate position in the patella for appropriate tracking and parallel with the joint.? Pegs were drilled trial implant was placed and the knee was then subsequently ranged and found to have excellent patellar tracking.? Femur pegs were then drilled.? At this point time all of our trial implants were removed.? All checkpoints as well as guidepins and arrays were removed and appropriate counts made.? Satisfied with our tibial placement rotation I then utilized the keel punch and prepped the tibia.? The wound bed? was thoroughly irrigated and dried and prepped for cement ation.? Cement was mixed on the back table.? Once cement was ready this was then covered onto the tibia and the tibial baseplate was then impacted and all excess cement was removed.? Next the polyethylene was then impacted into place on the tibial baseplate.? Next cement was placed onto the femur as well as under the femur implants and impacted in to place and all excess cement was extruded and removed.? Knee was taken into full extension? to clear all excess cement was removed.? Warm saline was placed over the joint.? I then towel clip patella and dried for cementation. cemented the patella into place.? This was all clamped and the cement was allowed to cure.? Thorough irrigation performed with pulse?lavage.? I then placed my periarticular injection while the cement was curing.? Once cured the knee was taken through range of motion and had excellent stability and gaps were balanced in flexion and extension.? Tourniquet was then deflated. hemostasis satisfactory with electrocautery.? Next I then subsequently closed the capsule with Ethibond suture as well as a running strata fix suture.? Knee was then taken through range of motion 30 times.? Next the skin was then closed in?layered fashion of running stratifix sutures of deep and subcutenous tissue and skin.? ?closed in flexion and Prineo glue was then placed over the incision this allowed to cure.? Incision was covered with Silverlong, with ABDs soft roll and Amarjit wrap.? Patient was then awakened from anesthesia and taken to PACU in stable condition. Disposition: Patient taken to PACU in stable condition will be admitted to the floor for pain control PT/OT weight-bear as tolerated?left?lower extremity dressing changes as needed, DVT prophylaxis. Pain control. Patient will receive appropriate postoperative antibiotics. patient will be seen today by the internal medicine team for medical management.? Patient will follow up with the office in 2 weeks.? Patient understands agrees with current plan.? All questions answered.
--- NOTE | 2025-06-16 12:28 | ANE.PACU2 ---
Inpatient post-anesthesia follow up: Airway intact: Yes Vital signs: Temperature 97.9 F Pulse Rate 66 Respiratory Rate 18 Blood Pressure 149/81 Pulse Oximetry 93 Oxygen Delivery Me thod Room Air Oxygen Flow Rate Fraction of Inspir ed Oxygen Hydration adequate: Yes Nausea and vomiting: No Pain level: 1 Mental status: Baseline
[2025-06-16] MEDS: chlorhexidine gluconate 0.12% Btl 473 mL 30 ML MUCOUS MEM ×3 (13:00→20:49)
[2025-06-16] MEDS: sennosides-docusate Tablet 2 TAB PO (16:08)
[2025-06-16] MEDS: mupirocin oint 22 gm 1 APPLIC NASAL (16:08)
[2025-06-16] MEDS: calcium carb-vit d 600mg/400unit 1 Tablet 1 EACH PO (16:08)
[2025-06-16] MEDS: tranexamic acid 1,000 MG/100 ML PREMIX 600 MG IV (16:09)
--- NOTE | 2025-06-16 16:25 | PM.CONSULT ---
Providers/Reason For Consult Consulting Physician/Specialty*: Huey Giron MD, MPH Reason for Consult*: Management of medical problems Requesting Physician: Dr. Green Attending Physician: Marino Green DO Primary Care Provider: Tomas Walsh MD History of Present Illness History of Present Illness Latoya Bell is a 79 year old admitted to the hospital today after she had uneventful left knee arthroplasty. Surgery reported her going very well. Patient denies any new complaints. She acknowledges history of A-fib with RVR, with chronic/long-term use of anticoagulant. She also acknowledged history of diabetes/hypertension, for which she takes hydrochlorothiazide and metoprolol. Review of Systems Narrative: General Negative for fever, headaches, dizziness or weakness. Respiration: Negative for shortness of breath, cough or wheezing. CVS: Negative for chest pain, palpitations or dyspnea on exertion. GI: Negative for nausea, vomiting, or diarrhea/constipation. UGS: Negative for dysuria, urgency or increased urinary frequency. All other systems reviewed, and essentially negative, except as noted in the HPI. Medications/Allergies Home Medications ?Medication ?Instructions ?Recorded ?Confirmed ?Last Taken ?Type ECONOMY HINGED KNEE BRACE #1 ea 05/02/23 06/16/25 Unknown Rx metoprolol succinate 100 mg 50 mg PO DAILY 12/26/23 06/16/25 06/16/25 06:55 History tablet,extended release 24 hr atorvastatin 40 mg tablet 40 mg PO DAILY #30 tabs 07/11/24 06/16/25 Unknown Rx apixaban 5 mg tablet (Eliquis) 5 mg PO BID #60 tabs 10/28/24 06/16/25 06/12/25 08:30 Rx citalopram 40 mg tablet 40 mg PO DAILY #30 tabs 10/28/24 06/16/25 06/15/25 Rx levothyroxine 75 mcg tablet 75 mcg PO DAILY #90 tabs 05/30/25 06/16/25 06/16/25 06:55 Rx (Synthroid) hydrochlorothiazide 25 mg tablet 25 mg PO DAILY 06/12/25 06/16/25 06/15/25 History Allergies Allergy/AdvReac Type Severity Reaction Status Date / Time codeine Allergy Severe Unknown Verified 06/12/25 15:14 Sulfa (Sulfonamide Allergy hives Verified 06/12/25 15:14 Antibiotics) Current Medications Generic Name Dose Route Start Last Admin Trade Name Jayjay PRN Reason Stop Dose Admin Calcium Carbonate 1 each 06/16/25 17:00 06/16/25 16:08 Calcium Carb-Vit D 600mg/400unit 1 Tablet PO 1 each BID MARISOL Administration Chlorhexidine Gluconate 30 ml 06/16/25 12:33 06/16/25 16:09 Chlorhexidine Gluconate 0.12% Btl 473 Ml MUCOUS MEM 30 ml QID MARISOL Administration Tranexamic Acid 1,000 mg in 100 mls @ 600 mls/hr 06/16/25 16:33 06/16/25 16:09 Tranexamic Acid IV 06/16/25 16:42 600 mls/hr ONCE ONE Administration Lactated Ringer's 1,000 mls @ 100 mls/hr 06/16/25 12:33 06/16/25 13:00 Lactated Ringers IV 100 mls/hr .Q10H MARISOL Administration Acetaminophen 1,000 mg in 100 mls @ 400 mls/hr 06/16/25 12:33 06/16/25 14:33 Acetaminophen IV 06/17/25 04:47 Infused Q8H MARISOL Infusion Mupirocin 1 applic 06/16/25 17:00 06/16/25 16:08 Mupirocin Oint 22 Gm NASAL 06/21/25 16:59 1 applic BID MARISOL Administration Protocol Polysaccharide Iron Complex 150 mg 06/16/25 18:00 06/16/25 16:08 Iron Polysaccharide Complex 150 Mg Capsule PO 150 mg BIDWM MARISOL Administration Senna/Docusate Sodium 2 tab 06/16/25 17:00 06/16/25 16:08 Sennosides-Docusate Tablet PO 2 tab BID MARISOL Administration PFSH Acute PFSH: Medical History Atrial fibrillation CVA (cerebral vascular accident) Occurred in April 2023. 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 Lung nodule Hypothyroid Social History Smoking and tobacco/nicotine status: never used tobacco/nicotine Alcohol intake: never Vitals/I&O/Wt Last Vital Signs Temp 97.5 F L 06/16/25 15:30 Pulse 64 06/16/25 15:30 Resp 18 06/16/25 15:30 BP 146/81 06/16/25 15:30 Pulse Ox 96 06/16/25 15:30 O2 Del Method Room Air 06/16/25 15:30 06/16/25 06/16/25 06/16/25 06:59 14:59 22:59 Intake Total 700 / 700 Output Total 645 / 645 Balance 55 / 55 Weight last 48 hrs Weight 77.111 kg Weight 77.111 kg Physical Exam Narrative: General: Awake and alert. No obvious respiratory distress. Neuro/Psych: Cranial nerves II to XII grossly intact. No obvious focal deficits. Chest/Resp: Bilateral equal air entry; chest clinically clear. CVS: Rhythm: Regular heart rate and rhythm. No obvious murmurs appreciated. GI: Soft and non-tender abdomen. No obvious organomegaly. Extremities: Bilateral equal pulses. No obvious pitting pedal edema. Skin: No obvious skin rashes or significant lesions. Moist mucous membranes. MSK: Otherwise deferred. Urinary Catheter Management: Ga: Cath Placed During This Visit: yes Urinary Catheter Date of Insertion: 06/16/25 Urinary Catheter Time of Insertion: 10:16 Data 06/16/25 08:57 06/16/25 09:35 A&P Assessment and plan 1. Status post total knee replacement, left: 2. Chronic atrial fibrillation, unspecified: 3. assisted current use of anticoagulant: 4. Hypothyroid: Plan: 1. Status post left TKA: Currently stable. Defer to the orthopedic surgeon for continued expert evaluation and treatment of the postop period. 2. Essential hypertension: Currently stable. Resume patient's antihypertensives in the morning. 3. Chronic A-fib with long-term anticoagulation: Stable. Anticipate resuming patient's Eliquis sometime tomorrow evening. 4. Hypothyroidism: We can resume patient's Synthroid sometime tomorrow. 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
[2025-06-16] MEDS: oxyCODONE 5 mg IR Tab/Cap PO ×2 (18:14→22:17)
[2025-06-17] MEDS: HYDROmorphone 0.5 MG/0.5 ML INJ IVP ×2 (00:07→09:07)
[2025-06-17 00:41] VITALS: BP 149/78; PULSE 94; RESP 18; TEMP 36.6; O2SAT 95
[2025-06-17] MEDS: ceFAZolin 2,000 MG in sodium chloride 0.9% (plus) 50 ML 100 MG IV ×2 (00:54→10:28)
[2025-06-17] MEDS: acetaminophen 1,000 MG/100 ML PIGGYBACK 400 MG IV (04:28)
[2025-06-17 04:29] VITALS: RESP 18
[2025-06-17] MEDS: calcium carb-vit d 600mg/400unit 1 Tablet 1 EACH PO (04:29)
[2025-06-17] MEDS: oxyCODONE 5 mg IR Tab/Cap PO (04:29)
[2025-06-17] MEDS: sennosides-docusate Tablet 2 TAB PO (04:29)
[2025-06-17] MEDS: multivitamin therapeutic Tablet 1 TAB PO (04:29)
[2025-06-17] MEDS: chlorhexidine gluconate 0.12% Btl 473 mL 30 ML MUCOUS MEM (04:30)
[2025-06-17] MEDS: mupirocin oint 22 gm 1 APPLIC NASAL (04:30)
[2025-06-17] MEDS: ondansetron 2 mg/ML SDV 2 mL 4 MG IVP ×2 (04:39→10:26)
[2025-06-17 04:54] VITALS: BP 151/82; PULSE 66; RESP 18; TEMP 36.6; O2SAT 94
[2025-06-17 05:35] LABS: Hematocrit 33.5 % (36-47); Hemoglobin 11.10 g/dL (11.27-16.99); Mean Corpuscular HGB Conc 33.1 g/dL (30-55); Mean Corpuscular Hemoglobin 30.5 pg (27-33); Mean Corpuscular Volume 92.0 fl (85-98); Nucleated Red Blood Cells % 0 %; Platelet Count 165 10^3/cmm (157-399); Red Blood Count 3.64 10^6/uL (3.85-5.65); White Blood Count 7.93 10^3/uL (3.29-11.43)
[2025-06-17 06:00] VITALS: BMI 30.1
[2025-06-17 06:00] LABS: Anion Gap 8.8 (5-19); Blood Urea Nitrogen 14 mg/dL (8-23); Calcium 8.3 mg/dL (8.5-10.5); Carbon Dioxide 28 mmol/L (22-29); Chloride 98 mmol/L (98-107); Creatinine Clr Calc Pharmacy 56.9859; Glucose 133 mg/dL (65-115); Osmolality Calculated 274 mOsm/kg (285-295); Potassium 3.8 mmol/L (3.5-5.1); Sodium 131 mmol/L (136-145)
[2025-06-17 07:22] VITALS: BP 124/77; PULSE 69; RESP 18; TEMP 36.8; O2SAT 91
--- NOTE | 2025-06-17 09:18 | PM.PN ---
Subjective Subjective: Seen again this morning in the company of family members, patient reports no new symptoms. She is awaiting further instruction/advancement per surgery. Vitals/I&O/Wt Last Vital Signs Temp 98.3 F 06/17/25 07:22 Pulse 69 06/17/25 07:22 Resp 18 06/17/25 07:22 BP 124/77 06/17/25 07:22 Pulse Ox 91 06/17/25 07:22 O2 Del Method Room Air 06/17/25 07:22 06/16/25 06/17/25 06/17/25 22:59 06:59 14:59 Intake Total 1200 / 1900 1150 / 3050 360 / 360 Output Total 1000 / 1645 575 / 2220 Balance 200 / 255 575 / 830 360 / 360 Weight last 48 hrs Weight 77.111 kg Weight 77.111 kg Weight 77.111 kg Physical Exam Narrative: General: Awake and alert. Cooperative. Chest/Resp: Normal respiratory chest movts; no obvious respiratory distress. CVS: Rhythm: Regular heart rate and rhythm. GI: Non-distended; No obvious organomegaly. Extremities: No obvious pitting pedal edema. Skin: No obvious new rashes or new skin lesions. Urinary Catheter Management: Ga: Cath Placed During This Visit: yes, but has since been removed by the nurse Reason for Continuing Indwelling Catheter: Decision to DC Catheter Urinary Catheter Date of Insertion: 06/16/25 Urinary Catheter Time of Insertion: 10:16 Date Urinary Catheter Removed: 06/17/25 Time Urinary Catheter Discontinued: 06:30 Data 06/17/25 05:12 06/17/25 05:12 A&P Assessment and plan 1. 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 Chronic atrial fibrillation, unspecified: 4. Hypothyroid: Plan: Medically stable patient. Okay from my standpoint for discharge whenever orthopedics is ready. Advised to continue her home medications, with no changes, upon discharge. I hereby sign out. PDMP PDMP Reviewed: Not Reviewed Attestations Medical Necessity Statement*: N/A. 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
--- NOTE | 2025-06-17 10:21 | PC.CHAP ---
Pastoral Care Encounter/Spiritual Assessment Type of Contact [] Declined maintenance leader visit [] Patient/Family/Request visit [] Outpatient visit [] Follow-up visit [] Physician referral [] Code/Alert [] Routine visit [] Staff referral [] Actively dying [] Patient sleeping [] Family support [] [] Out of room [] Palliative care [] [x] Receiving care in room [] Pre-surgical visit [] Trauma [] Long length of stay [] ICU visit [] Other: Relational/Emotional Strength [] Patient feels connected with others/family/visitors/staff [] Distress [] Loneliness/isolation [] Abandonment Spirituality of Patient [] Person of Malini [] Attends Restorationism of their Malini [] Believes in Prayer [] Reads Bible or Anabaptism materials [] There are Spiritual issues to be addressed Line Repairer Interventions [] Prayer [] Active listening [] Non-anxious presence [] Spiritual/emotional support [] Crisis/trauma care [] Spiritual counseling [] Bereavement support [] Provided bereavement packet [] Provided Bible/devotional materials [] Provided toy/stuffed animal, coloring book to patient or family member [] Provided Communion [] Anointing/[place] [] Salvation [] Completed spiritual assessment [] Other: Impact on Illness or Injury [] Angry [] Fearful [] Anxious [] Often cries [] Exhaustion [] Unable to work [] Unable to attend holiness [] Unable to walk/stand [] Unable to read [] Unable to drive [] Unable to eat/drink [] Unable to sleep [] Unable to be with family [] Patient intubated [] Other: Summary Time spent with patient
[2025-06-17 11:05] VITALS: BP 156/71; PULSE 70; RESP 18; TEMP 36.6; O2SAT 92
[2025-06-17 13:38] VITALS: BP 156/71; PULSE 70; RESP 18; TEMP 36.6; O2SAT 92
--- NOTE | 2025-06-17 13:44 | PM.DCS ---
Discharge Providers Date of Admission: 06/16/25 12:06 Date of Discharge: June 17, 2025 Attending Provider at Admission: Marino Green DO Attending Provider at Discharge: Marino Green DO Consults: hospitalist -dr Giron Primary Care Provider: Tomas Walsh MD Diagnoses at Discharge Discharge Diagnosis 1. Status post total knee replacement, left: 2. Chronic atrial fibrillation, unspecified: 3. FPC current use of anticoagulant: 4. Hypothyroid: Reason for Visit Reason for Visit: M17.12 Brief History: Status post left total knee arthroplasty Hospital Course Hospital Course Patient presented to the preoperative holding area with plan for left total knee arthroplasty after patient has been worked up in the outpatient setting for failed conservative treatment of left knee degenerative joint disease. Once cleared by anesthesia for surgery patient subsequently was taken back to the operative suite underwent anesthesia per anesthesia department and then subsequently underwent a left total knee arthroplasty. Procedure was performed without any complications patient was taken to PACU in stable condition patient recovered well in PACU and then was admitted to the floor postoperatively internal medicine was consulted and on board for medical management and assistance with care. Patient received appropriate PT/OT, postoperative antibiotics, postoperative TXA, pain control, postoperative DVT prophylaxis. Elevation and ice. Patient encouraged for knee range of motion allowed weightbearing as tolerated to the operative lower extremity. Dressing was changed as needed, labs were monitored daily. Patient recovered well postoperatively and worked well and progressed well with therapy. It was determined on postoperative day 1 the patient was stable for discharge from an orthopedic standpoint and medicine. Patient was comfortable with discharge and plan was discharged home. Patient received appropriate discharge instructions as well as pain medication and DVT prophylaxis postoperatively. Given appropriate instructions for dressing management. Patient will follow-up with Dr. Green/orthopedics in the office in 2 weeks. All questions answered. Understand if there is any issues questions or concerns and contact the office. Physical Exam Narrative: Left knee examination: Dressing on in place, clean dry and intact. No evidence of saturation. Patient has normal postoperative swelling and tenderness to palpation to the knee. Compartments are soft compressible,'s calf soft and nontender. Sensations intact to light touch distally. Distal pulses are palpable. Patient is able to wiggle toes as well as plantarflex and dorsiflex ankle. Urinary Catheter Management: Ga: Cath Placed During This Visit: yes, but has since been removed by the nurse Reason for Continuing Indwelling Catheter: Decision to DC Catheter Urinary Catheter Date of Insertion: 06/16/25 Urinary Catheter Time of Insertion: 10:16 Date Urinary Catheter Removed: 06/17/25 Time Urinary Catheter Discontinued: 06:30 Discharge Data Studies Completed and Pending Completed Studies During Hospitalization Category Date Time Status XR knee LT 1-2V 14560 Routine Exams 06/16/25 10:22 Completed Radiology Impressions Knee X-Ray 06/16/25 10:22 IMPRESSION: Intact knee prosthesis. Laboratory Results WBC 7.93 10^3/uL (3.29-11.43) 06/17/25 05:12 RBC 3.64 10^6/uL (3.85-5.65) L 06/17/25 05:12 Hgb 11.10 g/dL (11.27-16.99) L 06/17/25 05:12 Hct 33.5 % (36-47) L 06/17/25 05:12 MCV 92.0 fl (85-98) 06/17/25 05:12 MCH 30.5 pg (27-33) 06/17/25 05:12 MCHC 33.1 g/dL (30-55) 06/17/25 05:12 RDW 13.6 % (12.1-15.1) 06/17/25 05:12 Plt Count 165 10^3/cmm (157-399) 06/17/25 05:12 MPV 10.3 fL (7.4-10.4) 06/17/25 05:12 Neut % (Auto) 83.3 % 06/17/25 05:12 Lymph % (Auto) 10.8 % 06/17/25 05:12 [place] % (Auto) 5.3 % 06/17/25 05:12 Eos % (Auto) 0.1 % 06/17/25 05:12 Baso % (Auto) 0.1 % 06/17/25 05:12 Neut # (Auto) 6.60 10^3/uL (1.8-7.7) 06/17/25 05:12 Lymph # (Auto) 0.9 10^3/uL (0.8-4.8) 06/17/25 05:12 [place] # (Auto) 0.4 10^3/uL (0.2-0.9) 06/17/25 05:12 Eos # (Auto) 0.0 10^3/uL (0.0-0.8) 06/17/25 05:12 Baso # (Auto) 0.0 10^3/uL (0.0-0.1) 06/17/25 05:12 Nucleated RBC % (auto) 0 % 06/17/25 05:12 Nucleated RBCs # 0.0 /100WBC 06/17/25 05:12 Sodium 131 mmol/L (136-145) L 06/17/25 05:12 Potassium 3.8 mmol/L (3.5-5.1) 06/17/25 05:12 Chloride 98 mmol/L (98-107) 06/17/25 05:12 Carbon Dioxide 28 mmol/L (22-29) 06/17/25 05:12 Anion Gap 8.8 (5-19) 06/17/25 05:12 BUN 14 mg/dL (8-23) 06/17/25 05:12 Creatinine 0.6 mg/dL (0.5-0.9) 06/17/25 05:12 GFR Calculation Not Reportable 06/17/25 05:12 Glucose 133 mg/dL (65-115) H 06/17/25 05:12 Calculated Osmolality 274 mOsm/kg (285-295) L 06/17/25 05:12 Calcium 8.3 mg/dL (8.5-10.5) L 06/17/25 05:12 Blood Type O Positive 06/16/25 09:35 Rho(D) Type Rh positive 06/16/25 09:35 Antibody Screen Negative 06/16/25 09:35 Vitals Last Vital Signs Temp 97.9 F 06/17/25 13:38 Pulse 70 06/17/25 13:38 Resp 18 06/17/25 13:38 BP 156/71 06/17/25 13:38 Pulse Ox 92 06/17/25 13:38 O2 Del Method Room Air 06/17/25 11:05 Discharge Plan Discharge Patient Disposition: Home Health Service Condition: Stable Prescriptions: New calcium carbonate-vitamin D3 [Calcium 600 + D(3)] 600 mg-10 mcg (400 unit) tablet 1 tab PO DAILY 30 Days Qty: 30 0RF cefadroxil 500 mg capsule 500 mg PO BID 7 Days Qty: 14 0RF oxycodone 5 mg tablet 5 mg PO Q6H PRN (Reason: pain postop) 7 Days Qty: 28 0RF Continued atorvastatin 40 mg tablet 40 mg PO DAILY Qty: 30 11RF (DME) ECONOMY HINGED KNEE BRACE See Rx Instructions .Route .MEDSUPPLY Qty: 1 0RF Rx Instructions: As directed metoprolol succinate 100 mg tablet extended release 24 hr 50 mg PO DAILY Dose Instruction: Take 1 tablet by mouth once daily Rx Instructions: Take 1/2 tablet by mouth once daily Eliquis 5 mg tablet 5 mg PO BID Qty: 60 11RF citalopram 40 mg tablet 40 mg PO DAILY Qty: 30 11RF levothyroxine [Synthroid] 75 mcg tablet 75 mcg PO DAILY Qty: 90 3RF hydrochlorothiazide 25 mg tablet 25 mg PO DAILY Rx Instructions: Take 1 tablet by mouth once daily Bakery Team Member OK for DC: Orthopedics Discharge Order = DC NOW: Discharge Order (Routine); Ordered 06/17/25 Ordered By: Marino Green Other Ambulatory Orders: DME: Walker (Order) Location: None Selected Ordered By: Marino Green Referrals: [facility] ([facility]) [Outside] Marino Green DO [Physician, Orthopedics] - 07/01/25 10:30 am Discharge Diet: Regular Discharge Activity: Limit activity as instructed and Use walker/crutches as instructed Patient Instructions: Cefadroxil (By mouth), Oxycodone, Rapid Release (By mouth), Acute Wound Care (DC), Total Knee Replacement (GEN), Opioid Safety, Post Anesthesia Care, Patient Portal & Pawel Instructions Activity Restrictions/Additional Instructions: Postop orthopedic discharge instructions Judy Dressing--Keep dressing on and dry. After 3 days you can remove some of the dressing and shower. disconnect battery pack when showering. Judy dressing will stay on until follow up appt in 2 weeks. The battery pack for the dressing will at 5-7 days. Battery pack can be removed and discarded once batteries . Patient may weight-bear as tolerate to the operative extremity Utilize walker as needed Encourage knee range of motion Ice and elevate as needed for pain and swelling Take pain medication as prescribed Take antinausea medication as needed Take antibiotic as prescribed for infection prevention Pain medication can cause constipation. take [id number] stool softeners and or MiraLAX. Resume home Eliquis start off with taking 1 tablet this evening for half day dosing and then resume full dosing tomorrow May supplement for pain with Tylenol [id number] as needed(1000 mg every 8 hours-do not exceed more than 3000mg in 24-hour period) No baths or soaks Follow-up in the orthopedic office in 2 weeks Contact the office for any questions or concerns Discharge Attestations Time Spent in Discharge Care*: less than 30 min Quality Metrics Clinical Quality Measures [ No reported AMI, CVA or VTE this stay] Coding Level of Care Code Acute Code for Chg Fwd Diagnoses Status post total knee replacement, left Z96.652 Chronic atrial fibrillation, unspecified I48.20 FPC current use of anticoagulant Z79.01 Hypothyroid E03.9
== END 2025-06-17 13:39 | disposition home health service (06) ==
LOC: MEDSURG 12:06
PROVIDERS: Physician Assistant; Admitting Provider Student in an Organized Health Care Education/Training Program; PCP Family Medicine; Visit Provider Student in an Organized Health Care Education/Training Program
PROC: 8E0Y0CZ Robotic Assisted Procedure of Lower Extremity, Open Approach (ICD-10-PCS; CPT 27447; principal; 2025-06-16 09:25)
DX: M17.12 Unilateral primary osteoarthritis, left knee (principal); I48.91 Unspecified atrial fibrillation; Z86.73 Personal history of transient ischemic attack (TIA), and cerebral infarction without residual deficits; E03.9 Hypothyroidism, unspecified; Z79.01 Long term (current) use of anticoagulants; I10 Essential (primary) hypertension
CPT/HCPCS: 27447; 20985; 36415; 51702; 73560; 80048; 85025; 86850; 86900; 97116; 97161; 97166; 97530; A4216; C1713; C1776; G0378; J0131; J0169; J0690; J1171; J1885; J2250; J2405; J2704; J2795; J3373; J7030; J7120; J9999; L8699

== ENCOUNTER → 2025-07-01 10:25 | Outpatient (BNVA) | payer MEDICARE, SELFPAY | PROVIDERS: PCP Family Medicine; Visit Provider Physician Assistant | DX: Z98.890 Other specified postprocedural states (principal); Z96.652 Presence of left artificial knee joint | CPT/HCPCS: 73560; 73565; 99024 ==

== ENCOUNTER 2025-07-21 12:26 | Outpatient (RCR) | payer MEDICARE, SELFPAY | END 2025-07-30 23:59 | disposition home or self-care (01) | LOC: SPT 12:26 | PROVIDERS: Visit Provider Student in an Organized Health Care Education/Training Program | DX: Z47.1 Aftercare following joint replacement surgery (principal); Z96.652 Presence of left artificial knee joint | CPT/HCPCS: 97110; 97161 ==